=== PATIENT | male | born 1950 | race Caucasian/White ===

== ENCOUNTER 2024-02-15 05:50 | Day surgery (SDC) | payer MEDICARE, OTHER ==
[2024-02-15] MEDS ORDERED: Lactated Ringers 1,000 ML IV SCH (06:30)
[2024-02-15 06:55] VITALS: RESP 16
[2024-02-15] MEDS ORDERED: Xylocaine-Mpf 2% 5 Ml Vial ONE (07:50)
[2024-02-15] MEDS ORDERED: DIPRIVAN 200 MG/20 ML IV ONE ×2 (07:50→08:09)
[2024-02-15] MEDS ORDERED: Ephedrine Sulfate 50 MG/ML ONE (08:13)
[2024-02-15] MEDS ORDERED: PHENYLEPHRINE HCL ONE (08:19)
[2024-02-15 09:07] VITALS: O2SAT 99
[2024-02-15 09:12] VITALS: BP 126/74; PULSE 70; TEMP 97.5
[2024-02-15] MEDS ORDERED: Sodium Chloride 0.9% 250 ML 250 ML IV ONE (10:07)
--- NOTE | 2024-02-16 08:50 | OP ---
SURGERY DATE/TIME: 02/15/2024 [id number] PREOPERATIVE DIAGNOSIS: Complains of abdominal pain and bloating. POSTOPERATIVE DIAGNOSES: 1) Mild gastritis. 2) Small gastric polyps. 3) Normal colon. PROCEDURE: 1) Esophagogastroduodenoscopy with cold forceps biopsy of gastric polyps and gastric antrum to rule out the presence of H. pylori. 2) Colonoscopy, normal exam. SURGEON: Valente Stone MD INDICATIONS: The patient is a 73-year-old white male patient presenting now for endoscopic evaluation. He has been having problems with increasing dyspnea. He reports bloating as the cause of this. He has not been losing significant weight. He does admit to taking Advil at least on an occasional basis. His only other medication has been Protonix. The patient is felt to need to have endoscopic evaluation. He was appraised of the risks of the procedure including risk of perforation, phlebitis, untoward reaction to medication, bleeding, and missed lesions. The patient verbalized his understanding and desired to have procedure performed. DESCRIPTION OF PROCEDURE AND FINDINGS: The patient was given medication by the Anesthesia Department. He had continuous pulse oximetry, ECG monitoring, and intermittent blood pressure monitoring during the examination. He was placed in left lateral decubitus position. A bite block was placed. The flexible Olympus gastroscope was used to intubate the oropharynx. A view of the larynx was obtained and was normal. The scope was easily introduced in the esophagus which appeared to be essentially normal throughout its length. The stomach was entered where normal gastric rugal folds were seen. There was noted 3 small gastric polyps that had a benign appearance. The scope was passed along the greater curvature of the stomach to the antrum. Pylorus was encountered and intubated. Duodenum was inspected and found to be normal. The scope was withdrawn toward the stomach. Again, retroflexed view was obtained of the lesser curvature, fundus, and cardia regions of the stomach and these appeared to be essentially normal. The scope was then directed toward the gastric antrum. Biopsies were obtained to rule out the presence of Helicobacter pylori-type organisms and a biopsy was taken from the gastric polyp as well. The scope was removed from the patient. Next, a digital rectal examination was performed and revealed normal anal sphincter tone, no masses, and a normal prostate. The flexible Olympus videocolonoscope was used to intubate the rectum. A view of the colon was developed sequentially to the cecum. Upon insertion and withdrawal including retroflexed view in the rectum, no mucosal lesions were encountered. The scope was removed from the patient who tolerated the procedure well and was sent back to outpatient recovery in good condition. The prep was noted to be fair to good.
== END 2024-02-15 09:12 | disposition home or self-care (01) ==
LOC: SDC 05:50
PROVIDERS: ATTEND Family Medicine
DX: Z12.11 Encounter for screening for malignant neoplasm of colon (principal); K29.70 Gastritis, unspecified, without bleeding; R10.9 Unspecified abdominal pain; R14.0 Abdominal distension (gaseous); K31.7 Polyp of stomach and duodenum; R10.13 Epigastric pain
CPT/HCPCS: 00813; 43239; 88305; 93005; 99100; G0121; J2371; J2704